=== PATIENT | male | born 1960 | race Caucasian/White ===

== ENCOUNTER 2017-04-28 02:33 | Emergency (ER) | payer OTHER ==
[2017-04-28 03:16] LABS: PLATELET COUNT 398 x10^3mcL (130-400); RED CELL DISTRIBUTION WIDTH 12.1 % (11.5-14.5)
[2017-04-28 03:17] LABS: BASOPHIL % 4.6 % (0-2)
[2017-04-28 04:06] LABS: CALCIUM 8.8 mg/dL (8.5-10.1); CARBON DIOXIDE 29.9 mmol/L (21-32); CHLORIDE SERUM 104 mmol/L (98-107); CREATININE SERUM 1.3 mg/dL (0.7-1.3); GFR1 > 60 mL/min; GLUCOSE SERUM 121 mg/dL (74-106); POTASSIUM SERUM 3.8 mmol/L (3.5-5.1); SODIUM SERUM 141 mmol/L (136-145)
[2017-04-28 04:10] LABS: ALBUMIN 3.5 g/dL (3.4-5.0); ALKALINE PHOSPHATASE 77 U/L (46-116); ALT/SGPT 22 U/L (16-63); AST/SGOT 19 U/L (15-37); BILIRUBIN TOTAL 0.21 mg/dL (0.20-1.00); LIPASE 176 IU/L (73-393); TOTAL PROTEIN, SERUM 7.7 g/dL (6.4-8.2)
[2017-04-28 05:56] VITALS: BP 145/87
== END 2017-04-28 05:30 | disposition home or self-care (01) ==
LOC: ED 02:33
PROVIDERS: Emergency Medicine
DX: J06.9 Acute upper respiratory infection, unspecified (principal)
CPT/HCPCS: 36415; 83880; J7512; J7613; J7644; Q0092

== ENCOUNTER 2017-09-17 17:29 | Emergency (ER) | payer OTHER ==
[~2017-09-17] VITALS: Ht 182.9 cm; Wt 84.8 kg
[2017-09-17 17:42] VITALS: BP 137/89; Ht 182.9 cm; Wt 84.8 kg
== END 2017-09-17 18:20 | disposition home or self-care (01) ==
LOC: ED 17:29
DX: J20.9 Acute bronchitis, unspecified (principal)